=== PATIENT | male | born 1960 | race Caucasian/White ===

== ENCOUNTER 2016-12-03 15:45 | Emergency (ER) | payer OTHER ==
[~2016-12-03] VITALS: Ht 180.3 cm; Wt 75.0 kg
[~2016-12-03 15:45] MED LIST: ALPR0.5T3 PO; BUPR150CR PO; PANC4200 PO; PAXI40TA PO
[2016-12-03 15:47] VITALS: BP 152/90; PULSE 87; RESP 17; TEMP 97.9; O2SAT 98
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
== END 2016-12-03 18:24 | disposition left against medical advice (07) ==
LOC: NETRI 15:45
DX: M54.5 Low back pain (principal)
CPT/HCPCS: 99281

== ENCOUNTER 2017-08-04 17:05 | Emergency (ER) | payer SELFPAY ==
[~2017-08-04] VITALS: Ht 180.3 cm; Wt 85.0 kg
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
[2017-08-04 17:23] VITALS: BP 162/95; PULSE 89; RESP 14; TEMP 98.7; O2SAT 96
[2017-08-04] MEDS ORDERED: TETANUS/DIPHTHERIA TOXOID ADULT 0.5 ML VIAL IM ONE (17:30)
[2017-08-04] MEDS ORDERED: ceFAZolin 2 GM PREMIX 50 ML IV ONE (17:30)
[2017-08-04] MEDS ORDERED: PAXI30TA7 PO (17:38)
--- NOTE | 2017-08-04 17:49 | RADRPT ---
EXAM DATE/TIME: 08/04/2017 17:32 [facility] COMPARISON: No previous studies available for comparison. INDICATIONS : Left hand pain after injury with saw. MEDICAL HISTORY : None. SURGICAL HISTORY : None. ENCOUNTER: Initial ACUITY: 1 day PAIN SCORE: Non-responsive. LOCATION: Left hand, third and forth digit. FINDINGS: Traumatic indication amputation of third digit at PIP joint Traumatic indication followup digit middle phalanx. Second and fifth digits are intact. CONCLUSION: Traumatic amputation as described above Zane Mcguire MD FACR on August 04, 2017 at 17:46 Board Certified Radiologist. This report was verified electronically.
[2017-08-04 18:52] VITALS: BP 164/94; PULSE 100; RESP 18; O2SAT 98
== END 2017-08-04 18:53 | disposition short-term general hospital (02) ==
LOC: NEPC 17:05
DX: S68.123A Partial traumatic metacarpophalangeal amputation of left middle finger, initial encounter (principal); S68.124A Partial traumatic metacarpophalangeal amputation of right ring finger, initial encounter; E78.00 Pure hypercholesterolemia, unspecified; K21.9 Gastro-esophageal reflux disease without esophagitis; I10 Essential (primary) hypertension; W29.8XXA Contact with other powered hand tools and household machinery, initial encounter; Z86.73 Personal history of transient ischemic attack (TIA), and cerebral infarction without residual deficits; Z87.19 Personal history of other diseases of the digestive system; Z23 Encounter for immunization
CPT/HCPCS: 73120; 90471; 90714; 96374; 99285; J0690